=== PATIENT | female | born 2000 | race Caucasian/White ===

== ENCOUNTER 2020-03-23 21:12 | Emergency (ER) | payer OTHER ==
[~2020-03-23] VITALS: Ht 167.6 cm; Wt 101.8 kg
[2020-03-23 21:36] VITALS: Ht 167.6 cm; Wt 101.8 kg
[2020-03-23 22:10] VITALS: BP 146/95
== END 2020-03-23 22:10 | disposition home or self-care (01) ==
LOC: ED 21:12
DX: L03.116 Cellulitis of left lower limb (principal); E11.9 Type 2 diabetes mellitus without complications; Z88.0 Allergy status to penicillin